=== PATIENT | female | born 1990 | race African-American/Black ===

== ENCOUNTER 2020-02-07 09:41 | Emergency (ER) | payer OTHER, SELFPAY ==
[2020-02-07 09:57] VITALS: BP 127/76; PULSE 100; RESP 16; TEMP 36.2; O2SAT 99
--- NOTE | 2020-02-07 10:10 | ED.DENTAL ---
HPI - Dental/Oral General Chief complaint: Dental/Oral Stated complaint: Dental Time Seen by Provider: 02/07/20 10:10 Source: patient Mode of arrival: ambulatory Limitations: no limitations History of Present Illness HPI Narrative: Carmen Plummer is a 29 yo female with no PMH who comes to express care with left-sided wisdom tooth pain. She attempted to have been extracted but they could only do 1 because of complications of placement; she had run extracted and is now having pain. Has a new dental appointment on 02/15. States she is tried Tylenol and ibuprofen but believes that the teeth are now infected. She is also breast-feeding Related Data Home Medications Medication Instructions Recorded Confirmed norethindrone (contraceptive) 0.35 mg PO DAILY 02/07/20 02/07/20 Allergies Allergy/AdvReac Type Severity Reaction Status Date / Time No Known Allergies Allergy Verified 02/07/20 10:03 Review of Systems Review of Systems: Narrative: CONSTITUTIONAL: Denies fever, chills, sweats. EYES: Denies visual changes, redness, discharge. ENT: Denies rhinorrhea, congestion, sore throat, otalgia. Left-sided tooth pain CARDIOVASCULAR: Denies chest pain, palpitations, edema. RESPIRATORY: Denies dyspnea, wheezing, cough GASTROINTESTINAL: Denies abdominal pain, nausea, vomiting, diarrhea. GENITOURINARY: Denies dysuria, hematuria, abnormal discharge SKIN: Denies rash or itching. NEUROLOGIC: Denies numbness, or focal weakness. PSYCHIATRIC: Denies anxiety or depression. PMFSH Past Medical History Medical History No active medical problems Family History Family History Other No active medical problems Social History Social History Smoking status: Never smoker Alcohol intake: never Gender identity (if verbalized by the patient): Female Comments At time of signature, I agree with nursing past medical, surgical, social and family history. There is no relevant family history pertinent to the presenting complaint. Exam Narrative: Exam Narrative: GENERAL: This is a well-nourished, well-developed patient, in moderate distress. HEAD: normocephalic, atraumatic. EYES: Sclera clear/white. Vision is grossly intact. EARS: External ears normal. Hearing grossly intact. NOSE: External nose normal without nasal discharge, nares without redness, no rhinorrhea. THROAT: Mucous membranes moist, posterior pharynx not red. L face swollen ans tender- submandibular tenderness NECK: Neck supple, CARDIOVASCULAR: Regular rate and rhythm without murmurs, gallops, or rubs. RESPIRATORY: Clear to auscultation. Breath sounds equal bilaterally. No wheezes, rales, or rhonchi. GASTROINTESTINAL: Abdomen soft, SKIN: warm, intact with no suspicious lesions or rash, good texture and turgor. NEURO: awake, alert, and oriented to person, place and time. There were no obvious focal neurologic abnormalities. Steady gait EXTREMITIES: Normal range of motion. BACK: Nontender without deformity Course Course Emergency Course: Came to express care with left-sided face pain and tooth pain from wisdom teeth Started on penicillin discussed Orajel Tylenol and ibuprofen rotation using salt water gargle Has dental appointment on February 15 Vital Signs Vital signs: Vital Signs Temperature 97.2 F L 02/07/20 09:57 Pulse Rate 100 02/07/20 09:57 Respiratory Rate 16 02/07/20 09:57 Blood Pressure 127/76 02/07/20 09:57 Pulse Oximetry 99 02/07/20 09:57 Temperature 97.2 F L 02/07/20 09:57 Pulse Rate 100 02/07/20 09:57 Respiratory Rate 16 02/07/20 09:57 Blood Pressure 127/76 02/07/20 09:57 Pulse Oximetry 99 02/07/20 09:57 MDM - Dental/Oral Differential Diagnosis Differential diagnosis: Likely gingival abscess, dental caries, toothache and other Discharge P
== END 2020-02-07 10:30 | disposition home or self-care (01) ==
PROVIDERS: Emergency Provider Nurse Practitioner
DX: K04.7 Periapical abscess without sinus (principal)
CPT/HCPCS: 99213; G0463

== ENCOUNTER 2020-08-01 19:12 | Emergency (ER) | payer OTHER, SELFPAY ==
[2020-08-01 19:18] VITALS: BP 138/83; PULSE 95; RESP 20; TEMP 36.2; O2SAT 100
--- NOTE | 2020-08-01 19:22 | ED.DENTAL ---
HPI - Dental/Oral General Chief complaint: Dental/Oral Stated complaint: Tooth Pain Time Seen by Provider: 08/01/20 19:22 Source: patient Mode of arrival: ambulatory Limitations: no limitations History of Present Illness HPI Narrative: Carmen Plummer is a 30 yo female with no PMH who comes with fractured tooth on both left and right upper molars-she has tried taking Tylenol and Advil and with no pain relief she is in a lot of discomfort at this moment. Patient will be referred to the dental clinic at [facility] for extraction as she is has a dentist that does not do molar extractions Related Data Home Medications Medication Instructions Recorded Confirmed norethindrone (contraceptive) 0.35 mg PO DAILY 08/01/20 08/01/20 Allergies Allergy/AdvReac Type Severity Reaction Status Date / Time No Known Allergies Allergy Verified 02/07/20 10:03 Review of Systems Review of Systems: Narrative: CONSTITUTIONAL: Denies fever, chills, sweats. EYES: Denies visual changes, redness, discharge. ENT: Denies rhinorrhea, congestion, sore throat, otalgia. CARDIOVASCULAR: Denies chest pain, palpitations, edema. RESPIRATORY: Denies dyspnea, wheezing, cough GASTROINTESTINAL: Denies abdominal pain, nausea, vomiting, diarrhea. GENITOURINARY: Denies dysuria, hematuria, abnormal discharge SKIN: Denies rash or itching. NEUROLOGIC: Denies numbness, or focal weakness. PSYCHIATRIC: Denies anxiety or depression. Tooth pain tooth 2 and tooth 14 PMFSH Past Medical History Medical History No active medical problems Family History Family History Other No active medical problems Social History Social History Smoking status: Never smoker Alcohol intake: never Gender identity (if verbalized by the patient): Female Comments At time of signature, I agree with nursing past medical, surgical, social and family history. There is no relevant family history pertinent to the presenting complaint. Exam Narrative: Exam Narrative: GENERAL: This is a well-nourished, well-developed patient, in moderate distress. Upset HEAD: normocephalic, atraumatic. EYES: Sclera clear/white. Vision is grossly intact. EARS: External ears normal, Hearing grossly intact. NOSE: External nose normal without nasal discharge, nares without redness, no rhinorrhea. Mouth: tooth 2 and 14 cracked, swelling on R side of jaw. THROAT: Mucous membranes moist, NECK: Neck supple, non-tender CARDIOVASCULAR: Regular rate and rhythm without murmurs, gallops, or rubs. RESPIRATORY: Clear to auscultation. Breath sounds equal bilaterally. No wheezes, rales, or rhonchi. GASTROINTESTINAL: Abdomen soft, SKIN: warm, intact with no suspicious lesions or rash, good texture and turgor. NEURO: awake, alert, and oriented to person, place and time. There were no obvious focal neurologic abnormalities. Steady gait EXTREMITIES: Normal range of motion. BACK: Nontender without deformity Course Course Emergency Course: Patient here due to dental pain for tooth 2 and 14 Patient started on penicillin, ibuprofen 800, lidocaine and Tylenol No. 3 [address] [facility] dental clinic given Vital Signs Vital signs: Vital Signs Temperature 97.1 F L 08/01/20 19:18 Pulse Rate 95 08/01/20 19:18 Respiratory Rate 20 08/01/20 19:18 Blood Pressure 138/83 08/01/20 19:18 Pulse Oximetry 100 08/01/20 19:18 Temperature 97.1 F L 08/01/20 19:18 Pulse Rate 95 08/01/20 19:18 Respiratory Rate 20 08/01/20 19:18 Blood Pressure 138/83 08/01/20 19:18 Pulse Oximetry 100 08/01/20 19:18 MDM - Dental/Oral Differential Diagnosis Differential diagnosis: Likely gingival abscess, dental caries, dental abscess, fracture of tooth and other Critical Care Time Critical Care Time Critical Care Time: No Discharge Plan Discharge Cli
== END 2020-08-01 19:45 | disposition home or self-care (01) ==
PROVIDERS: Emergency Provider Nurse Practitioner; PCP Obstetrics & Gynecology
DX: K04.7 Periapical abscess without sinus (principal)
CPT/HCPCS: 99213; G0463

== ENCOUNTER 2020-12-22 08:39 | Emergency (ER) | payer OTHER, SELFPAY ==
[2020-12-22 08:50] VITALS: BP 136/89; PULSE 93; RESP 16; TEMP 37.2; O2SAT 99
--- NOTE | 2020-12-22 09:01 | ED.DENTAL ---
HPI - Dental/Oral General Chief complaint: Dental/Oral Stated complaint: Tooth Pain Time Seen by Provider: 12/22/20 09:01 Source: patient Mode of arrival: ambulatory Limitations: no limitations History of Present Illness HPI Narrative: Carmen Plummer is a 30 yo female with no PMH who comes to [facility] with right upper and lower dental pain with swelling that has been going on for 3 to 4 days. She needs extraction of this tooth and is to call [facility] dental clinic. Related Data Home Medications Medication Instructions Recorded Confirmed norethindrone (contraceptive) 0.35 mg PO DAILY 08/01/20 08/01/20 Allergies Allergy/AdvReac Type Severity Reaction Status Date / Time No Known Allergies Allergy Verified 02/07/20 10:03 Review of Systems Review of Systems: CONSTITUTIONAL: Denies fever, chills, sweats. EYES: Denies visual changes, redness, discharge. ENT: Denies rhinorrhea, congestion, sore throat, otalgia. Right lower molar pain and swelling swelling on the right upper also CARDIOVASCULAR: Denies chest pain, palpitations, edema. RESPIRATORY: Denies dyspnea, wheezing, cough GASTROINTESTINAL: Denies abdominal pain, nausea, vomiting, diarrhea. GENITOURINARY: Denies dysuria, hematuria, abnormal discharge SKIN: Denies rash or itching. NEUROLOGIC: Denies numbness, or focal weakness. PSYCHIATRIC: Denies anxiety or depression. PMFSH Past Medical History Medical History No active medical problems Family History Family History Other No active medical problems Social History Social History Smoking status: Never smoker Alcohol intake: never Gender identity (if verbalized by the patient): Female Comments At time of signature, I agree with nursing past medical, surgical, social and family history. There is no relevant family history pertinent to the presenting complaint. Exam Narrative: GENERAL: This is a well-nourished, well-developed patient, in mild distress. HEAD: normocephalic, atraumatic. EYES: Sclera clear/white. Vision is grossly intact. EARS: External ears normal, . Hearing grossly intact. NOSE: External nose normal without nasal discharge, nares without redness, no rhinorrhea. THROAT: Mucous membranes moist, Right last molar, #17 has swelling around gum and pain on right upper and lower jaw NECK: Neck supple, non-tender CARDIOVASCULAR: Regular rate and rhythm without murmurs, gallops, or rubs. RESPIRATORY: Clear to auscultation. Breath sounds equal bilaterally. No wheezes, rales, or rhonchi. GASTROINTESTINAL: Abdomen soft, SKIN: warm, intact with no suspicious lesions or rash, good texture and turgor. NEURO: awake, alert, and oriented to person, place and time. There were no obvious focal neurologic abnormalities. Steady gait EXTREMITIES: Normal range of motion. BACK: Nontender without deformity Course Course Emergency Course: Patient here with dental pain on the right this is a recurrent visit for her and has been unable to get into a public clinic to get teeth extracted Started on penicillin, Tylenol 3, lidocaine, 800 mg ibuprofen Vital Signs Vital signs: Vital Signs Temperature 98.9 F 12/22/20 08:50 Pulse Rate 93 12/22/20 08:50 Respiratory Rate 16 12/22/20 08:50 Blood Pressure 136/89 12/22/20 08:50 Pulse Oximetry 99 12/22/20 08:50 Temperature 98.9 F 12/22/20 08:50 Pulse Rate 93 12/22/20 08:50 Respiratory Rate 16 12/22/20 08:50 Blood Pressure 136/89 12/22/20 08:50 Pulse Oximetry 99 12/22/20 08:50 MDM - Dental/Oral Differential Diagnosis Differential diagnosis: Likely gingival abscess, dental caries, toothache, dental abscess, fracture of tooth and other Critical Care Time Critical Care Time Critical Care Time: No Discharge Plan Discharge Clinical Impression: Dental
== END 2020-12-22 09:22 | disposition home or self-care (01) ==
PROVIDERS: Emergency Provider Nurse Practitioner
DX: K02.9 Dental caries, unspecified (principal); S02.5XXA Fracture of tooth (traumatic), initial encounter for closed fracture; X58.XXXA Exposure to other specified factors, initial encounter
CPT/HCPCS: 99213; G0463

== ENCOUNTER 2021-09-04 09:55 | Emergency (ER) | payer OTHER, SELFPAY ==
[2021-09-04 10:04] VITALS: BP 136/84; PULSE 91; RESP 20; TEMP 37.1; O2SAT 98
[2021-09-04 10:05] VITALS: BP 136/84; PULSE 91; RESP 20; TEMP 37.1; O2SAT 98
--- NOTE | 2021-09-04 10:16 | ED.FEMALEGU ---
HPI - Female Genitourinary General Chief complaint: Urogenital-Female Stated complaint: UTI Time Seen by Provider: 09/04/21 10:16 Source: patient, RN notes reviewed and old records reviewed Mode of arrival: ambulatory Limitations: no limitations History of Present Illness HPI Narrative: 31-year-old female presents to the [facility] with complaints of abnormal smelling urine. Concern for a UTI. Denies fevers. Patient states whenever she gets a UTI she does not have normal symptoms. Last menstrual period was last week. Denies any chances of an STD. No vaginal discharge. No suprapubic pain, no low back pain. Denies fevers. No nausea vomiting or diarrhea Related Data Home Medications Medication Instructions Recorded Confirmed norethindrone (contraceptive) 0.35 0.35 mg PO DAILY 08/01/20 09/04/21 mg tablet Allergies Allergy/AdvReac Type Severity Reaction Status Date / Time No Known Allergies Allergy Verified 09/04/21 10:03 Review of Systems Review of Systems: All systems reviewed & are unremarkable except as noted in HPI and below Constitutional: Constitutional: Reports no additional constitutional complaints, Denies chills and Denies fatigue Eyes: Eyes: Reports no additional eye complaints ENT: Reports system reviewed and no additional complaints, except as documented Cardiovascular: Cardiovascular: Reports no additional cardiovascular complaints Respiratory: Respiratory: Reports no additional respiratory complaints Gastrointestinal: Gastrointestinal: Reports no additional gastrointestinal complaints, Denies abdominal pain, Denies diarrhea, Denies nausea and Denies vomiting Genitourinary: Genitourinary: Reports as per HPI, Reports hematuria, Reports dysuria, Denies flank pain, Denies vaginal discharge and Reports other (Abnormal smell rotten eggs ) Musculoskeletal: Musculoskeletal: Reports no additional musculoskeletal complaints and Denies back pain Integumentary/Breasts: Skin/Breast: Reports system reviewed and no additional complaints, except as docu Neurologic: Reports system reviewed and no additional complaints, except as documented Psychiatric: Psychiatric: Reports no additional psychiatric complaints Endocrine: Endocrine: Denies fatigue Allergic/Immunologic: Allergic/Immunologic: Reports no additional allergic/immunologic complaints PMFSH Past Medical History Medical History (Updated 09/04/21 @ 10:21 by Agustina Guillen APRN) No active medical problems Surgical History Surgical History (Updated 09/04/21 @ 17:10 by Agustina Guillen APRN) No pertinent past surgical history Family History Family History Other No active medical problems Social History Social History (Updated 09/04/21 @ 17:10 by Agustina Guillen APRN) Smoking status: Never smoker Alcohol intake: never Living arrangements: with family Gender identity (if verbalized by the patient): Female Comments At the time of my signature, I reviewed and agree with the nursing past medical, surgical, social, and family history. There is no relevant family history pertinent to the patient complaint. Exam Const: General: healthy appearing, no acute distress and alert Nutritional Appearance: well nourished Orientation/consciousness: patient oriented x3 Limitations: no limitations HENMT: Head: normal to inspection Ears: external ears normal Eyes: Conjunctivae: conjunctivae normal Pupils: Equal, round and reactive pupils present Neck: Neck: normal visual inspection, no lymphadenopathy and no meningeal signs Chest: Chest palpation & inspection: normal inspection of the chest and abnormal inspection of the chest Resp: Effort & Inspection: normal respiratory effort Auscultation: clear to auscultation bilaterally Cardio: Rate: regular rate Rhythm: regular rhythm GI: GI Palp: Yes Soft to palpation and No Tenderness to palpation present (GI) : General:
== END 2021-09-04 10:45 | disposition home or self-care (01) ==
PROVIDERS: Emergency Provider Nurse Practitioner
DX: N39.0 Urinary tract infection, site not specified (principal)
CPT/HCPCS: 81003; 87077; 87086; 87186; 99213; G0463

== ENCOUNTER 2021-12-22 15:27 | Emergency (ER) | payer OTHER, SELFPAY ==
[2021-12-22 15:35] VITALS: BP 139/82; PULSE 83; RESP 16; TEMP 36.4; O2SAT 100
--- NOTE | 2021-12-22 16:25 | ED.FEMALEGU ---
HPI - Female Genitourinary General Chief complaint: Urogenital-Female Stated complaint: Vaginal Problems Time Seen by Provider: 12/22/21 15:50 Source: patient, RN notes reviewed and old records reviewed Mode of arrival: ambulatory Limitations: no limitations History of Present Illness HPI Narrative: 31 year old female presents to [facility] care with complaints of 1.5 weeks of vaginal discharge of white thick chunky discharge that is itchy. Patient denies any urinary burning or pain denies any abdominal pain or any fevers.Patient reports no concerns for STD exposure. Patient states that she changed body soap recently. Patient did try OTC Monistat bur no improvement. MD elicited complaint: vaginal discharge (thick white) Onset (ago): week(s) (1.5) Related Data Home Medications Medication Instructions Recorded Confirmed norethindrone (contraceptive) 0.35 0.35 mg PO DAILY 08/01/20 09/04/21 mg tablet Allergies Allergy/AdvReac Type Severity Reaction Status Date / Time No Known Allergies Allergy Verified 12/22/21 15:34 Review of Systems Review of Systems: CONSTITUTIONAL: Denies fever, chills, or sweats. EYES: Denies visual changes, redness, or discharge. ENT: Denies rhinorrhea, congestion, sore throat, or otalgia. CARDIOVASCULAR: Denies chest pain, palpitations, or edema. RESPIRATORY: Denies cough or dyspnea. GASTROINTESTINAL: Denies abdominal pain, nausea, vomiting, or diarrhea. GENITOURINARY: Denies dysuria or hematuria.white thick chunky vaginal discharge that is itchy SKIN: Denies rash or itching. MUSCULOSKELETAL: Denies back pain, joint pain, or myalgia. NEUROLOGIC: Denies headache, numbness, or weakness. PSYCHIATRIC: Denies anxiety or depression. All systems reviewed & are unremarkable except as noted in HPI and below PMFSH Past Medical History Medical History (Updated 12/23/21 @ 00:01 by Vinicio Nicole) No active medical problems Surgical History Surgical History Previous section Family History Family History Other No active medical problems Social History Social History (Updated 12/26/21 @ 08:03 by Nichole Bell NP) Smoking status: Former smoker Additional smoking assessment comments: quit 6 years ago Alcohol intake: never Substance use type: does not use Living arrangements: with family Gender identity (if verbalized by the patient): Female Comments At time of signature, agree with nursing past medical, surgical, social and family history. There is no relevant family history pertinent to the presenting complaint Exam Narrative: GENERAL: Well-appearing, well-nourished, and in no acute distress. HEAD: Normocephalic, atraumatic. EYES: PERRLA and EOMI. ENT: Nares clear, no rhinorrhea or epistaxis. Mucous membranes moist.TM's normal with good light reflex, throat pink no swelling or lesions NECK: Supple.no lymphadenopathy CHEST: Clear to auscultation. No respiratory distress.SAO2 100% on room air HEART: Regular rate and rhythm. No murmur heard. Normal peripheral pulses. ABDOMEN: Soft, nontender, nondistended, normal active bowel sounds.No CVA tenderness,no abdominal pain thick chunky vaginal discharge that is itchy EXTREMITIES: Normal range of motion. No edema. SKIN: Warm, dry, no rash. NEURO: No focal deficits. Alert and oriented x3. Course Course Level of Care: Express Care Visit Vital Signs Vital signs: Vital Signs Temperature 36.4 C L 12/22/21 15:35 Pulse Rate 83 12/22/21 15:35 Respiratory Rate 16 12/22/21 15:35 Blood Pressure 139/82 12/22/21 15:35 Pulse Oximetry 100 12/22/21 15:35 Oxygen Delivery Room Air 12/22/21 15:35 Temperature 36.4 C L 12/22/21 15:35 Pulse Rate 83 12/22/21 15:35 Respiratory Rate 16 12/22/21 15:35 Blood Pressure 139/82 12/22/21 15:35 Pulse Oximetry 100 12/22/21 15:35 Oxygen Delivery Ro
== END 2021-12-22 16:43 | disposition home or self-care (01) ==
PROVIDERS: Emergency Provider Registered Nurse; PCP Obstetrics & Gynecology Maternal & Fetal Medicine
DX: B37.3 Candidiasis of vulva and vagina (principal); Z87.891 Personal history of nicotine dependence
CPT/HCPCS: 99213; G0463

== ENCOUNTER 2022-01-10 16:34 | Emergency (ER) | payer OTHER, SELFPAY ==
[2022-01-10 16:47] VITALS: BP 141/78; PULSE 82; RESP 16; TEMP 37; O2SAT 99
--- NOTE | 2022-01-10 17:00 | ED.FEMALEGU ---
HPI - Female Genitourinary General Chief complaint: Urogenital-Female Stated complaint: Vaginal Problems Time Seen by Provider: 01/10/22 17:00 Source: patient and RN notes reviewed Mode of arrival: ambulatory Limitations: no limitations History of Present Illness HPI Narrative: 31-year-old female presented for complaint of vaginal burning and irritation since yesterday. She was treated for yeast infection 2 weeks ago, completed the treatment with resolution of symptoms. States she had a conversation with her significant other, who admits to sexual intercourse with 'a random' female, therefore there is unknown exposure to STD. She reports thick white discharge, without odor. Started monistat today. Related Data Home Medications Medication Instructions Recorded Confirmed norethindrone (contraceptive) 0.35 0.35 mg PO DAILY 08/01/20 01/10/22 mg tablet Allergies Allergy/AdvReac Type Severity Reaction Status Date / Time No Known Allergies Allergy Verified 01/10/22 16:37 Review of Systems Review of Systems: CONSTITUTIONAL: Denies body aches, fever, chills, or sweats. CARDIOVASCULAR: Denies chest pain, palpitations, or edema. RESPIRATORY: Denies cough or dyspnea. GASTROINTESTINAL: Denies abdominal pain, nausea, vomiting, or diarrhea. GENITOURINARY: denies dysuria, frequency, urgency, hematuria, flank pain reports vaginal discharge SKIN: Denies rash, itching, or wounds. MUSCULOSKELETAL: Denies back pain or myalgia. [facility] Past Medical History Medical History No active medical problems Surgical History Surgical History Previous section Family History Family History Other No active medical problems Social History Social History Smoking status: Former smoker Additional smoking assessment comments: quit 6 years ago Alcohol intake: never Substance use type: does not use Gender identity (if verbalized by the patient): Female Comments At time of signature, I have reviewed and agree with nursing past medical, surgical, social and family history unless otherwise noted. Please see nursing chart for further information. There is no relevant family history pertinent to the presenting complaint Exam Narrative: GENERAL: Well-appearing ENT: Mucous membranes pink and moist. CHEST: No respiratory distress. Clear to auscultation. HEART: Regular rate and rhythm. ABDOMEN: Soft, nontender, nondistended, normal active bowel sounds. No CVA tenderness : Speculum Exam - normal vaginal introitus, pink without apparent discharge/bleeding, however patient used Monistat application today and is affecting visualization; tender to external labia with flat round macules subjective tenderness; Speculum Exam - normal appearance of the cervix, closed. Chaperoned by Ava LOPEZ SKIN: Warm, dry, no rash. NEURO: Alert and oriented x3. Course Course Emergency Course: Patient is aware of diagnosis, understands and agrees to treatment plan. Anticipatory guidance given. Patient agrees to follow-up as directed and is aware of reasons to seek care at the emergency department. Portions of this record may have been created with voice recognition software Level of Care: Express Care Visit Vital Signs Vital signs: Vital Signs Temperature 98.6 F 01/10/22 16:47 Pulse Rate 82 01/10/22 16:47 Respiratory Rate 16 01/10/22 16:47 Blood Pressure 141/78 H 01/10/22 16:47 Pulse Oximetry 99 01/10/22 16:47 Oxygen Delivery Room Air 01/10/22 16:47 Temperature 98.6 F 01/10/22 16:47 Pulse Rate 82 01/10/22 16:47 Respiratory Rate 16 01/10/22 16:47 Blood Pressure 141/78 H 01/10/22 16:47 Pulse Oximetry 99 01/10/22 16:47 Oxygen Delivery Room Air 01/10/22 16:47 Revie
== END 2022-01-10 17:39 | disposition home or self-care (01) ==
PROVIDERS: Emergency Provider Nurse Practitioner Family; PCP Obstetrics & Gynecology Maternal & Fetal Medicine
DX: Z20.2 Contact with and (suspected) exposure to infections with a predominantly sexual mode of transmission (principal); Z87.891 Personal history of nicotine dependence
CPT/HCPCS: 87070; 87255; 87491; 87591; 87661; 99214; G0463

== ENCOUNTER 2022-04-21 10:28 | Emergency (ER) | payer OTHER, SELFPAY ==
[2022-04-21 10:34] VITALS: PULSE 98; RESP 20; TEMP 36.9; O2SAT 100
--- NOTE | 2022-04-21 10:38 | ED.HA ---
HPI - Headache General Chief Complaint: Headache Stated Complaint: Nausea/Headache Time Seen by Provider: 04/21/22 10:38 Source: patient Mode of arrival: ambulatory Limitations: no limitations History of Present Illness HPI Narrative: 31-year-old female presents with complaint headache, nausea for the past several days. Taking Tylenol with no relief. States due to nausea this morning she was unable to take a dose of Tylenol prior to arrival. Denies abdominal pain. No urinary complaints. Reports history of migraines that were related to stress. Last menstrual period was sometime in March. All systems reviewed and negative except as noted above. Related Data Home Medications Medication Instructions Recorded Confirmed norethindrone (contraceptive) 0.35 0.35 mg PO DAILY 08/01/20 04/21/22 mg tablet Allergies Allergy/AdvReac Type Severity Reaction Status Date / Time No Known Allergies Allergy Verified 04/21/22 10:31 Review of Systems Review of Systems: CONSTITUTIONAL: Denies fever, chills, or sweats. EYES: Denies visual changes, redness, or discharge. ENT: Denies rhinorrhea, congestion, sore throat, or otalgia. CARDIOVASCULAR: Denies chest pain, palpitations, or edema. RESPIRATORY: Denies cough or dyspnea. GASTROINTESTINAL: Denies abdominal pain, vomiting, or diarrhea. Reports nausea. GENITOURINARY: Denies dysuria or hematuria. SKIN: Denies rash or itching. MUSCULOSKELETAL: Denies back pain, joint pain, or myalgia. NEUROLOGIC: Reports headache. Denies numbness, or weakness. PSYCHIATRIC: Denies anxiety or depression. All other systems reviewed are negative, except as documented in HPI. [facility] Past Medical History Medical History No active medical problems Surgical History Surgical History Previous section Family History Family History Other No active medical problems Social History Social History Smoking status: Former smoker Additional smoking assessment comments: quit 6 years ago Alcohol intake: never Substance use type: does not use Living arrangements: with family Gender identity (if verbalized by the patient): Female Comments At time of signature, agree with nursing past medical, surgical, social and family history. There is no relevant family history pertinent to the presenting complaint. Exam Narrative: GENERAL: This is a well-nourished, well-developed patient, in no apparent distress. HEAD: normocephalic, atraumatic. EYES: PERRL. Sclera clear/white. Vision is grossly intact. EARS: External ears normal NOSE: External nose normal NECK: Neck supple, non-tender without lymphadenopathy, masses or thyromegaly. CARDIOVASCULAR: Regular rate and rhythm without murmurs, gallops, or rubs. RESPIRATORY: Clear to auscultation. Breath sounds equal bilaterally. No wheezes, rales, or rhonchi. SKIN: warm, Dry, intact with no suspicious lesions or rash, good texture and turgor. NEURO: awake, alert, and oriented to person, place and time. There were no obvious focal neurologic abnormalities. EXTREMITIES: No joint tenderness, effusion, or edema noted. Course Course Level of Care: Express Care Visit Vital Signs Vital signs: Vital Signs Temperature 36.9 C 04/21/22 10:34 Pulse Rate 98 04/21/22 10:34 Respiratory Rate 20 04/21/22 10:34 Pulse Oximetry 100 04/21/22 10:34 Oxygen Delivery Room Air 04/21/22 10:34 Temperature 36.9 C 04/21/22 10:34 Pulse Rate 98 04/21/22 10:34 Respiratory Rate 20 04/21/22 10:34 Blood Pressure 136/86 04/21/22 10:56 Pulse Oximetry 100 04/21/22 10:34 Oxygen Delivery Room Air 04/21/22 10:34 reviewed MDM - Headache MDM Narrative Medical decision making narrative: Michele
[2022-04-21 10:56] VITALS: BP 136/86
[2022-04-21] MEDS: ACETAMINOPHEN 500 MG TABLET 1000 MG PO (10:59)
[2022-04-21] MEDS: ONDANSETRON HCL ODT 4 MG TABLET SUBLINGUAL (10:59)
== END 2022-04-21 11:35 | disposition home or self-care (01) ==
PROVIDERS: Emergency Provider Nurse Practitioner Family; PCP Obstetrics & Gynecology Maternal & Fetal Medicine
DX: O99.891 Other specified diseases and conditions complicating pregnancy (principal); Z3A.00 Weeks of gestation of pregnancy not specified; R51.9 Headache, unspecified
CPT/HCPCS: 81025; 99213; A9270; G0463

== ENCOUNTER 2022-05-21 09:14 | Emergency (ER) | payer OTHER, SELFPAY ==
[2022-05-21 09:24] VITALS: BP 124/71; PULSE 100; RESP 16; TEMP 37.7; O2SAT 99
--- NOTE | 2022-05-21 09:55 | ED.FEMALEGU ---
HPI - Female Genitourinary General Chief complaint: Abdominal Pain Stated complaint: Abdominal Pain Time Seen by Provider: 05/21/22 09:25 Source: patient Mode of arrival: ambulatory Limitations: no limitations History of Present Illness HPI Narrative: Leaky she is a 32-year-old female patient presenting to the clinic today with complaints of abdominal cramping and vaginal pain/pressure. She reports that this has been going on for 1 day. Rates her pain currently as 6/10. She is 12 weeks . Has had history of a transabdominal cerclage in April of 2019. She denies any vaginal discharge or vaginal bleeding. She denies any urinary symptoms. States that she contacted her doctor and they suggested she come to the urgent care for an ultrasound. She has an appointment with her OBGYN provider on . Related Data Allergies Allergy/AdvReac Type Severity Reaction Status Date / Time No Known Allergies Allergy Verified 05/21/22 09:23 [facility] Past Medical History Medical History No active medical problems Surgical History Surgical History Previous section Family History Family History Other No active medical problems Social History Social History Smoking status: Former smoker Additional smoking assessment comments: quit 6 years ago Alcohol intake: never Substance use type: does not use Living arrangements: with family Gender identity (if verbalized by the patient): Female Comments At the time of my signature, I reviewed and agree with the nursing past medical, surgical, social, and family history. There is no relevant family history pertinent to the patient complaint. Exam Narrative: General: Well-developed, obese, in no apparent distress. Head: Normocephalic, atraumatic. Cardio: Regular rate and rhythm, s1 and s2 normal, no murmur appreciated. Resp: Clear to auscultation bilaterally, no rhonchi, rales, wheezing or rubs. Abdomen: Soft, pliable, bowel sounds present in all quadrants, mild tender to palpation over the suprapubic area, no organomegly, no CVAT tenderness. : Deferred Course Course Emergency Course: Portions of this record may have been created with voice recognition software. Level of Care: Express Care Visit Vital Signs Vital signs: Vital Signs Temperature 37.7 C H 05/21/22 09:24 Pulse Rate 100 05/21/22 09:24 Respiratory Rate 16 05/21/22 09:24 Blood Pressure 124/71 05/21/22 09:24 Pulse Oximetry 99 05/21/22 09:24 Oxygen Delivery Room Air 05/21/22 09:24 Temperature 37.7 C H 05/21/22 09:24 Pulse Rate 100 05/21/22 09:24 Respiratory Rate 16 05/21/22 09:24 Blood Pressure 124/71 05/21/22 09:24 Pulse Oximetry 99 05/21/22 09:24 Oxygen Delivery Room Air 05/21/22 09:24 Vital signs reviewed Transfer Transfered to: Other ([facility]) Transportation: Other (Private car) Transfer rationale: High-risk , 12 weeks , threatened miscarriage Accepting physician: Dr. Ramez Saenz Transfer comments: Patient declining EMS transferred via private car MDM - Female Genitourinary MDM Narrative Medical decision making narrative: At the time of visit patient is resting comfortably on the exam table. She has rates her pain as 6/10. Explained to the patient that we are unable to do ultrasounds in the clinic and recommend transfer to the ER. She would like to be transferred to [facility] as she is high risk . Contacted [facility] access line and spoke with Nichole and report was given for continuity of care. Nichole reports that Dr. Myrick or Dr. Saenz will be the providers to see patient. Stated that report to the physician was no
== END 2022-05-21 09:47 | disposition short-term general hospital (02) ==
PROVIDERS: Emergency Provider Nurse Practitioner Family; PCP Obstetrics & Gynecology Maternal & Fetal Medicine
DX: O26.891 Other specified pregnancy related conditions, first trimester (principal); R10.2 Pelvic and perineal pain; R10.9 Unspecified abdominal pain; Z87.891 Personal history of nicotine dependence; Z3A.12 12 weeks gestation of pregnancy
CPT/HCPCS: 99212; G0463

== ENCOUNTER 2024-10-19 12:59 | Emergency (ER) | payer OTHER, SELFPAY ==
[2024-10-19 13:11] VITALS: BP 133/98; PULSE 133; RESP 20; TEMP 36.3; O2SAT 100
--- NOTE | 2024-10-19 13:16 | ED_ITS ---
HPI - URI/Sore Throat General Chief Complaint: Upper Respiratory Infection Stated Complaint: sore throat/can't swallow/ears burning Time Seen by Provider: 10/19/24 13:15 Source: patient Mode of arrival: ambulatory Limitations: no limitations History of Present Illness HPI Narrative: Carmen is a 34-year-old female patient presenting to the clinic today with complaints of sore throat, difficulty swallowing, ear pain, sinus congestion/pressure, productive cough with green phlegm, and chills times 4- 5 days. No drooling and is able to swallow her saliva. She denies any known fever. States her son just got back from [facility] and is sick as well. Denies any chest pain or shortness of breath. Has been taking ibuprofen and Tylenol for her symptoms. Related Data Allergies Allergy/AdvReac Type Severity Reaction Status Date / Time No Known Allergies Allergy Verified 10/19/24 13:10 Review of Systems Review of Systems: Pertinent positives per HPI. Patient denies any rash, headache, visual changes, dizziness, shortness of breath, chest pain, palpitations, nausea, vomiting, diarrhea, constipation, abdominal pain, or any urinary issues. [facility] Past Medical History Medical History No active medical problems Surgical History Surgical History Previous section Family History Family History Other No active medical problems Social History Social History Smoking status: Former smoker Additional smoking assessment comments: quit 6 years ago Alcohol intake: never Substance use type: does not use Living arrangements: with family Gender identity (if verbalized by the patient): Female Comments At the time of my signature, I reviewed and agree with the nursing past medical, surgical, social, and family history. There is no relevant family history pertinent to the patient complaint. Exam Narrative: General: Well-developed, morbidly obese, acute ill appearing Head: Normocephalic, atraumatic Eyes: Pupils equally round and reactive to light bilaterally, EOM intact, sclera and conjunctive clear, no discharge, lids normal Ears: TMs intact and congested, ear canals clear, no drainage, grossly hearing normal. Nose: Nares patent, green nasal discharge, moderate inflammation, maxillary sinus tenderness. Mouth: Oral pharynx red with bilateral tonsillar enlargement without lesions or masses, good dentition, MMM. Neck: Supple, trachea midline, enlargement of anterior cervical nodes, no thyroid masses or goiter palpable. Cardio: Regular rate and rhythm, s1 and s2 normal, no murmur appreciated. Resp: Clear to auscultation bilaterally, no rhonchi, rales, wheezing or rubs Course Course Emergency Course: Portions of this record may have been created with voice recognition software. Level of Care: Express Care Visit Vital Signs Vital signs: Vital Signs Temperature 36.3 C L 10/19/24 13:11 Pulse Rate 133 H 10/19/24 13:11 Respiratory Rate 20 10/19/24 13:11 Blood Pressure 133/98 H 10/19/24 13:11 Pulse Oximetry 100 10/19/24 13:11 Oxygen Delivery Room Air 10/19/24 13:11 Temperature 36.3 C L 10/19/24 13:11 Pulse Rate 133 H 10/19/24 13:11 Respiratory Rate 20 10/19/24 13:11 Blood Pressure 133/98 H 10/19/24 13:11 Pulse Oximetry 100 10/19/24 13:11 Oxygen Delivery Room Air 10/19/24 13:11 Vital signs reviewed MDM - URI/Sore Throat MDM Narrative Medical decision making narrative: At the time of visit patient is resting comfortably on the exam table. Patient appears to be acutely ill appearing. Patient is tachycardic in the clinic today. HR 133, Lowest heart rate was 118. States she has drink coffee today. Has not taken any Sudafed or any other [id number] medications other than Tylenol and ibuprofen. Last dose was this morning around 130 in the morning. Is complaining of sore throat, difficulty swallowing due to pain, productive cough, sinus pressure/congestion, ear pain, and chills. [place], strep, COVID, and influenza testing were all ordered. Labs: [place], strep, COVID, and influenza testing were all negative in the clinic today. We will send strep for culture. Plan: I suspect patient has tonsillitis/sinusitis. Prescription for Augmentin and prednisone was sent to the pharmacy. Supportive measures were discussed with the patient and they voiced understanding discharge instructions and agrees to treatment plan. Return precautions reviewed Differential Diagnosis Differential diagnosis: Likely upper respiratory infection, otitis media, sinusitis, viral infection, bronchitis, influenza, pharyngitis and other (COVID) Lab Data Labs: Lab Results 10/19/24 10/19/24 Range/Units 13:08 13:16 POC Monoscreen Negative (Negative) POC Influenza A Ag Negative (Negative) POC Influenza B Ag Negative (Negative) POC SARS CoV-2 Ag Negative (Negative) POC Grp A Strep Screen Negative (Negative) Discharge Plan Discharge Clinical Impression: Sinusitis Qualifiers: Sinusitis location: maxillary Chronicity: acute Recurrence: non-recurrent Qualified Code(s): J01.00 - Acute maxillary sinusitis, unspecified Acute tonsillitis Qualifiers: Pharyngitis/tonsillitis etiology: unspecified etiology Qualified Code(s): J03.90 - Acute tonsillitis, unspecified Patient Disposition: Home Condition: Stable Instructions: Antibiotic Form, Sinusitis (ED), Tonsillitis (ED) Additional Instructions: COVID, influenza, strep, and mono testing were all negative in the clinic today. I suspect you have sinusitis/tonsillitis. Prescription for prednisone and Augmentin was sent to the pharmacy Take prescription medications only as prescribed-prednisone and Augmentin Increase fluids and stay well hydrated Tylenol/motrin for pain/fever Flonase and OTC antihistamines as directed Vicks vapor rub to open sinuses Sinus rinses for congestion Cepacol spray, cough drops, throat lozenges, warm tea with honey/lemon, gargle salt water to soothe throat BRAT diet for diarrhea Clear liquids x 24 hours then advance as tolerated for nausea/vomiting Go to the ED if you develop a worsening in your condition- high fever not controlled by Tylenol or Motrin, dehydration, weakness, lethargy, shortness of breath, or chest pain. Follow up with your PCP in 3-5 days if symptoms persist. Patient Language: [place] Prescriptions: New prednisone 20 mg tablet 40 mg PO DAILY 5 Days Qty: 10 0RF amoxicillin-pot clavulanate 875-125 mg tablet 1 tablet PO Q12H 10 Days Qty: 20 0RF Follow-up/Referrals: Bailey,Meghan Hill MD [Primary Care Provider] - Stand Alone Forms: Work/School Release IP Time of Disposition: 13:43 Quality NIHSS Nursing Documentation ED NIHSS nursing documentation: reviewed/agree
[2024-10-19 13:39] LABS: EDSTREPNEGPOS1 Negative (Negative)
[2024-10-19 13:39] LABS: EDCOVIDSCREEN Negative (Negative); EDINFLUASCREEN Negative (Negative); EDINFLUBSCREEN Negative (Negative); EDMONONEGPOS Negative (Negative)
== END 2024-10-19 13:50 | disposition home or self-care (01) ==
PROVIDERS: Emergency Provider Nurse Practitioner Family; PCP Obstetrics & Gynecology Maternal & Fetal Medicine
DX: J01.00 Acute maxillary sinusitis, unspecified (principal); J03.90 Acute tonsillitis, unspecified; Z20.822 Contact with and (suspected) exposure to COVID-19; Z87.891 Personal history of nicotine dependence
CPT/HCPCS: 36416; 86308; 87081; 87426; 87804; 87880; 99213; G0463